=== PATIENT | female | born 1945 | race African-American/Black ===

== ENCOUNTER 2020-09-04 12:25 | Emergency (ER) | payer MEDICARE, OTHER ==
[~2020-09-04] VITALS: Ht 157.5 cm; Wt 92.0 kg
[~2020-09-04 12:25] MED LIST: AMIT10TA6; ASPI81TA47 PO; BUSPIRONE PO; FERROUS SULFATE PO; HYDR-3512 PO; HYDROXYZINE PO; KLORCON PO; LORA2VIA PO; METF500T3 PO; OMEPRAZOLE PO; OXYBUTYNIN PO; PREMARIN PO
[2020-09-04] MEDS ORDERED: ACETAMINOPHEN 500MG TABLET PO ONE (14:00)
[2020-09-04 15:47] VITALS: BP 135/93
== END 2020-09-04 16:11 | disposition home or self-care (01) ==
LOC: ER 12:25
DX: S70.02XA Contusion of left hip, initial encounter (principal); E11.9 Type 2 diabetes mellitus without complications; M19.90 Unspecified osteoarthritis, unspecified site; Z88.3 Allergy status to other anti-infective agents; Z88.0 Allergy status to penicillin; Z90.49 Acquired absence of other specified parts of digestive tract; Z90.710 Acquired absence of both cervix and uterus; Z79.82 Long term (current) use of aspirin; Z79.84 Long term (current) use of oral hypoglycemic drugs; W18.2XXA Fall in (into) shower or empty bathtub, initial encounter; Y93.89 Activity, other specified; Y92.012 Bathroom of single-family (private) house as the place of occurrence of the external cause
CPT/HCPCS: 73522; 99283